=== PATIENT | male | born 1975 | race Hispanic/Latino ===

== ENCOUNTER 2020-02-20 15:54 | Emergency (ER) | payer OTHER, MEDICAID, SELFPAY ==
[2020-02-20 15:56] VITALS: BP 106/73; PULSE 82; RESP 15; TEMP 36.4; O2SAT 98; BMI 27.4
--- NOTE | 2020-02-20 16:59 | ED.DCSUM_ITS ---
- ER Visit Summary Date of Service: 02/20/20 Chief Complaint: Itching History of Present Illness: The patient is a 44 M who presents with itching that is been getting worse over the past 2 weeks. Patient states the itching is worse over his hips and gluteal area. Patient states he is concerned over possible gonorrhea. Patient states he thinks he has been exposed to it. Patient denies any urethral discharge but admits to some burning with urination. Patient admits to a fever of 101 at home. Patient denies any shortness of breath or cough. Physical Examination: Vital signs are stable. Patient is afebrile. Patient is in no acute distress. Oral mucosa is pink and moist. Neck is supple. Trachea is midline. There is no JVD. Heart was regular rate and rhythm. Lungs are clear and equal bilaterally. Abdomen is soft. Bowel sounds are normal. There is no tenderness. Cranial nerves II through XII are intact. There are no focal motor or sensory deficits noted. Extremities are intact. There is no calf tenderness or edema. Skin is warm dry. There is no rash noted. There are some excoriations noted over the lateral aspect of the hips bilaterally as well as the gluteal area. There is no active bleeding noted. There is no erythema or warmth noted. Emergency Department Course and Treatment: Urine was collected for GC and chlamydia and trichomonas. Patient was given Rocephin, Zithromax, and Flagyl here. Patient was instructed to avoid alcohol. Patient was instructed to follow-up with his primary care physician for culture results. Patient understood and was agreeable with the plan. All questions were answered. Disposition: Discharge home Impression: 1. STD exposure This note was generated with [employer] dictation software. It may contain incorrect words, spelling, and punctuation that were not noted in review of the chart prior to signing ED Disposition - Plan for ED Patient: Disposition: Home or Assisted Living Diagnosis: STD exposure Instructions: ED STI Male Treated Referrals: Angelica Flores [NON-STAFF] - 5-7 Days
[2020-02-20] MEDS: Azithromycin 250 MG Tablet 1000 MG PO (17:16)
[2020-02-20] MEDS: metroNIDAZOLE 500 MG Tablet 2000 MG PO (17:16)
[2020-02-20] MEDS: Ceftriaxone 500 MG Vial 250 MG IM (17:26)
[2020-02-20 20:22] LABS: Chlamydia Trachomatis by PCR Negative (Negative); Neisserai gonorrhoeae by PCR Negative (Negative); Probe Check PASS; Sample Adequacy Control PASS; Specimen Processing Control PASS
== END 2020-02-20 17:48 | disposition home or self-care (01) ==
LOC: ED 17:06
PROVIDERS: Emergency Provider Emergency Medicine
DX: Z20.2 Contact with and (suspected) exposure to infections with a predominantly sexual mode of transmission (principal); Z72.0 Tobacco use
CPT/HCPCS: 87210; 87491; 87591; 96372; 99281

== ENCOUNTER 2020-09-06 17:53 | Observation (INO) | payer MEDICAID, SELFPAY ==
[2020-09-06 17:54] VITALS: BP 131/76; PULSE 92; RESP 16; TEMP 35.7; O2SAT 97; BMI 26.2
--- NOTE | 2020-09-06 18:27 | EDS_ITS ---
HPI History of Present Illness Chief Complaint: Substance Abuse Informant: patient Onset/Context/Timing Onset: Month(s) Timing: Intermittent Current Severity: Mild Maximum Severity: Mild Narrative Narrative: 45-year-old male history of IV heroin abuse. Here requesting detox. Also states 4 days ago he stumbled down 4 steps and believes he may have fractured his left forearm. States he is ambidextrous. Denies any prior history or surgery to the left forearm. Denies any head or neck injury. Prior similar symptoms: Yes Recent Illness/Hospitalization: No PFSH PFSH Home Medications NK 09/06/20 [History Last Taken Unknown] Allergy/AdvReac Type Severity Reaction Status Date / Time No Known Allergies Allergy Verified 09/06/20 17:53 Social History Smoking Status: Current every day smoker ROS ROS ED ROS Narrative Patient denies any recent illness. He denies any fever, nausea, vomiting or diarrhea. Review of Systems ROS Unobtainable: Denies due to encephalopathy Constitutional Constitutional ED: Denies fever(s) Eyes Eyes: Denies change in vision ENT ENT ED: Denies sore throat Cardiovascular Cardiovascular: Denies chest pain or palpitations Respiratory/Chest Respiratory/Chest: Denies dyspnea Gastrointestinal Gastrointestinal: Denies abdominal pain, diarrhea, nausea or vomiting Genitourinary Genitourinary ED: Denies dysuria Musculoskeletal Musculoskeletal: Denies myalgias Integumentary Denies rash Neurologic Neurologic: Denies headache(s) Psychiatric Psychiatric: Denies depression Endocrine Endocrinology: Denies polyuria Allergic/Immunologic Allergic/Immunologic ED: Denies urticaria EXAM Physical Exam Narrative Exam Narrative: Middle-aged male no acute distress. Vital signs stable afebrile. HEENT exam unremarkable atraumatic. Pupils round reactive light. C- spine nontender. Trachea midline. Lungs clear to auscultation bilaterally. Heart regular rhythm no murmur. Chest wall he has mild right lateral rib tenderness with a small abrasion. No subcu air crepitance. Abdomen soft nontender normal bowel sounds no peritoneal signs. No bruising. Pelvic girdle intact. Patient moving all 4 extremities. Tract zuniga visualized. Not acutely infected. Normal range of motion. He does have tenderness to his distal left forearm. There is mild swelling. No gross bony deformity. Both hands are neurovascularly intact. Back nontender. Spine nontender. Neurologically is awake and alert with no focal motor deficits. He knows month and year. He knows where he is at. He is acting normally. Const Vital Signs: 09/06/20 17:54 Temperature 96.3 F L Temperature Source Temporal Pulse Rate 92 Respiratory Rate 16 Blood Pressure 131/76 H Blood Pressure Mean 94 Pulse Ox 97 Oxygen Delivery Method Room Air HEENT Reports moist mucous membranes Negative for trauma or tenderness Eyes PERRL and EOMs intact bilaterally Neck no lymphadenopathy, supple and no JVD General: Negative for tenderness Chest Wall inspection of chest normal Chest Narrative: Small abrasion on right lateral chest wall Resp normal respiratory effort and clear to auscultation bilaterally Cardio regular rate, regular rhythm and no murmurs GI normal to inspection, nondistended, normoactive bowel sounds, non-tender and no masses Inspection: Negative for abdominal distention Auscultation: normoactive bowel sounds Palpation: soft; Negative for tender Back/Spine no CVA tenderness Cervical Spine: Negative for cervical spine tenderness Thoracic Spine / Upper Back: Negative for thoracic spinal tenderness or paraspinal muscle tenderness Lumbar Spine / Lower Back: Negative for lumbar spinal tenderness Extremity normal to inspection Extremity Narrative: Except tenderness mild swelling to the left distal forearm. Hand is neurovascular intact. Neuro oriented x3 and CN's II-XII intact bilaterally Sensorium / Orientation: alert; Negative for orientation impaired Motor Exam: strength 5/5 throughout Psych mental status grossly normal Skin no rashes or lesions noted MDM MDM MDM Narrative Medical decision making narrative: Patient requesting admission for detox. He also fell injuring his left distal forearm which will be x-rayed along with his chest. I will speak to the hospitalist about admission for detox. Radiography Diagnostic Testing: Radiology Impression Chest X-Ray 09/06/20 18:28 IMPRESSION: No acute radiographic abnormalities. Electronically Signed: Yvan Allred MD at 19:12 EDT Tel , Service support , Forearm X-Ray 09/06/20 18:31 IMPRESSION: Acute transverse nondisplaced fracture of the distal ulnar diaphysis. Electronically Signed: Yvan Allred MD at 19:13 EDT Tel , Service support , Left forearm x-ray 2 views interpreted by myself shows a nondisplaced fracture of the distal third of the ulna. This is also read by the radiologist who agrees. Chest x-ray AP and lateral view showed no obvious rib fractures. Normal cardiac silhouette mediastinum. Interpreted by myself and the radiologist. Treatment and Re-Evaluation Comments:: I went over the x-rays with the patient. His left forearm was placed in a short arm AP Ortho-Glass splint. He tolerated procedure well. Procedures Upper Extremity Splints Upper Extremity Splint: Orthoglass and Volar Splint Fabrication: Fabricated Location: Left Discharge Plan Triage Chief Complaint: Substance Abuse ED Provider: Wagner Melendrez Dx/Rx/DC Orders Clinical Impression: Active substance abuse, Desire for detoxification Prescriptions: No Action NK RF: 0 Primary Care Provider: Care Physician,No Primary Referrals: Care Physician,No Primary [Primary Care Provider] -
--- NOTE | 2020-09-06 18:28 | RAD_ITS ---
INDICATION: fell and hit right lateral ribs EXAMINATION/TECHNIQUE: X-RAY - XR Chest 2 Views COMPARISON: None. FINDINGS: The lungs are clear. The cardiomediastinal silhouette is unremarkable. No pleural effusion or pneumothorax. No acute osseous abnormalities. RAD/Chest PA and Lateral IMPRESSION: No acute radiographic abnormalities. Electronically Signed: Yvan Allred MD at 19:12 EDT Tel , Service support ,
--- NOTE | 2020-09-06 18:31 | RAD_ITS ---
INDICATION: fall and pain EXAMINATION/TECHNIQUE: X-RAY - LEFT XR Forearm 2 Views COMPARISON: None. FINDINGS: Acute transverse nondisplaced fracture of the distal ulnar diaphysis. No blastic or lytic lesions. No degenerative changes are seen. Soft tissue swelling of the forearm. RAD/Forearm 2 Views IMPRESSION: Acute transverse nondisplaced fracture of the distal ulnar diaphysis. Electronically Signed: Yvan Allred MD at 19:13 EDT Tel , Service support ,
--- NOTE | 2020-09-06 19:33 | ED.RN ---
CALLED 180 NAVIGATOR (CASANDRA), TO ADVISE OF ADMISSION
--- NOTE | 2020-09-06 19:35 | CM.ED ---
SOCIAL WORK Referral Source: Self-referral Reason for Consult: Substance Abuse Met with patient in room. Introduced role and reason for referral. Patient requesting detox from heroin. Patient states last use was today around 1:30p or 2p. Patient states recently broke hand and has been using more. Patient states I just can't do it anymore. Patient reports has completed an assessment with [facility]. Education provided on RAMP and informed SW from [facility] will be in to complete assessment. Patient verbalized understanding and agrees with rules of RAMP. Patient denies any questions at this time. [facility] Treatment Navigator has been notified of admission. Plan: Admit to [facility] CRISTINA Chan, WEED CONTROLLER
--- NOTE | 2020-09-06 19:40 | HP.PCM_ITS ---
HPI - General General Date of Admission: 09/06/20 HPI Narrative DA GEORGE, is a 45 M who presents for desire for detoxification from opioids. Patient states that his last use was between 130 and 2 PM earlier today. Patient states he uses an average of 1 g of heroin daily. Denies other concurrent drug use. Patient also reports smoking 1 pack/day of cigarettes. Patient denies use of alcohol. Patient also reports that 4 days ago he fractured his left arm. Ash wrap with Ortho-Glass in place. Patient denies any withdrawal symptoms at this time. Patient denies having any medical problems or taking medications daily. [facility] Home Medications NK 09/06/20 [History Last Taken Unknown] Allergy/AdvReac Type Severity Reaction Status Date / Time No Known Allergies Allergy Verified 09/06/20 17:53 Social History Smoking Status: Current every day smoker ROS Constitutional Constitutional: Denies anorexia, chills or fatigue Cardiovascular Cardiovascular: Denies chest pain, edema, palpitations or syncope Respiratory/Chest Respiratory/Chest: Denies cough, hemoptysis, shortness of breath at rest or shortness of breath with exertion Gastrointestinal Gastrointestinal: Denies abdominal pain, constipation or diarrhea Genitourinary Genitourinary: Denies dysuria Musculoskeletal Musculoskeletal: Reports extremity pain; Denies back pain or joint pain Integumentary Integumentary: Denies dry skin, rash or wounds Neurologic Neurologic: Denies abnormal gait, abnormal speech or confusion Psychiatric Psychiatric: Denies anxiety or depression Endocrine Endocrinology: Denies change in body appearance, cold intolerance or heat intolerance Hematologic/Lymphatic Hematologic/Lymphatic: Denies easy bleeding or easy bruising Vital Signs Vital Signs Vital Signs: 09/06/20 17:54 Temperature 96.3 F L Temperature Source Temporal Pulse Rate 92 Respiratory Rate 16 Blood Pressure 131/76 H Blood Pressure Mean 94 Pulse Ox 97 Oxygen Delivery Method Room Air Physical Exam Const alert and oriented x3 General Appearance: cooperative HEENT normocephalic and head/scalp atraumatic Eyes PERRL Neck supple, no JVD and thyroid normal General: trachea midline Lymph Lymphatic: no lymphadenopathy noted Resp normal respiratory effort, normal air movement and clear to auscultation bilaterally Cardio regular rate, regular rhythm, S1 normal heart sound and S2 normal heart sound GI normal to inspection, nondistended, normoactive bowel sounds, soft to palpation and non-tender Extremity normal capillary refill and no clubbing, cyanosis or edema Extremity Narrative: Casting in place to left lower arm due to fracture 4 days ago. General Extremity: no tenderness to palpation of joints or extremities Skin General Skin Exam: no breakdown and turgor normal Lesions: no lesions Rashes: no rashes Neuro CN's II-XII intact bilaterally Psych thought process normal, cooperative and affect normal Appearance: appropriate Radiology Impression Chest X-Ray 09/06/20 18:28 IMPRESSION: No acute radiographic abnormalities. Electronically Signed: Yvan Allred MD at 19:12 EDT Tel , Service support , Forearm X-Ray 09/06/20 18:31 IMPRESSION: Acute transverse nondisplaced fracture of the distal ulnar diaphysis. Electronically Signed: Yvan Allred MD at 19:13 EDT Tel , Service support , Assessment & Plan Assessment/Plan (1) Opioid abuse: (2) Desire for detoxification: (3) Tobacco abuse: PLAN: 1. Opioid abuse with desire for detoxification -Admit to [facility] -Opioid withdrawal protocol ordered including buprenorphine and supportive medications -Case management consulted for 180 involvement -Vital signs per protocol 2. Tobacco abuse -NicoDerm patch ordered daily DVT Prophylaxis-not indicated This patient was seen by KATHY MosleyC under the supervision of Dr. Marley.
[2020-09-06 19:41] VITALS: BP 124/78; PULSE 88; RESP 16; TEMP 36.7; O2SAT 99
[2020-09-06 20:00] VITALS: BMI 25.6
[2020-09-06 20:23] VITALS: BP 137/70; PULSE 69; RESP 12; TEMP 37.1; O2SAT 96
[2020-09-06 22:35] VITALS: O2SAT 97
[2020-09-06 23:17] VITALS: BP 116/70; PULSE 56; RESP 16; TEMP 37.2; O2SAT 99
[2020-09-07] MEDS: traZODone 100 MG Tablet PO (00:33)
[2020-09-07] MEDS: Buprenorphine HCl 2 MG TAB.SUBL 4 MG SL ×2 (01:15→09:25)
[2020-09-07 05:17] VITALS: BP 132/80; PULSE 61; RESP 16; TEMP 36.9; O2SAT 98
[2020-09-07] MEDS: Dicyclomine 10 MG Capsule 20 MG PO (06:16)
[2020-09-07] MEDS: Acetaminophen 325 MG Tablet 650 MG PO (06:16)
[2020-09-07 07:44] VITALS: O2SAT 96
[2020-09-07 09:25] VITALS: BP 121/70; PULSE 76; RESP 18; TEMP 36.6; O2SAT 98
[2020-09-07] MEDS: cloNIDine HCl 0.1 MG Tablet PO (09:28)
--- NOTE | 2020-09-07 12:26 | PCM.PN.HOSP ---
Documented by User: Katie Kamara NP, [employer] MECHANIC-C 09/07/20 12:30 Subjective Subjective: Patient seen and examined. Denies significant withdrawal symptoms. States he feels fairly well this morning. Awaiting [employer] consult. Objective Data Objective Data Vital Signs: Vital Signs Temp Pulse Resp BP Pulse Ox 97.9 F 76 18 121/70 H 98 09/07/20 09:25 09/07/20 09:25 09/07/20 09:25 09/07/20 09:25 09/07/20 09:25 Oxygen Delivery Method Room Air Weight: 154 lb 1.65 oz Body Mass Index (BMI) 25.6 Intake & Output: Intake and Output for Last 24 Hours 09/05/20 09/06/20 09/07/20 23:59 23:59 23:59 Intake Total 220 / 220 360 / 360 Balance 220 / 220 360 / 360 Radiography Diagnostic Testing: Radiology Impression Chest X-Ray 09/06/20 18:28 IMPRESSION: No acute radiographic abnormalities. Electronically Signed: Yvan Allred MD at 19:12 EDT Tel , Service support , Forearm X-Ray 09/06/20 18:31 IMPRESSION: Acute transverse nondisplaced fracture of the distal ulnar diaphysis. Electronically Signed: Yvan Allred MD at 19:13 EDT Tel , Service support , Physical Exam Const alert, oriented x3 and no apparent distress Orientation / Consciousness: awake, oriented to person, oriented to place and oriented to time HEENT normocephalic and moist oral mucous membranes Eyes PERRL, EOMs intact bilaterally and conjunctivae normal Neck no lymphadenopathy Resp normal respiratory effort and clear to auscultation bilaterally Cardio regular rate, regular rhythm and no murmurs Peripheral Pulses: pulses 2+ throughout GI normal to inspection, nondistended, normoactive bowel sounds, non-tender and non-distended Extremity normal to inspection Extremity Narrative: Left arm in cast, recent fracture Skin no rashes or lesions noted Lesions: no lesions Rashes: no rashes Trauma: no lacerations or abrasions Neuro oriented x3 Sensorium / Orientation: awake and alert Psych affect normal Assessment & Plan Assessment/Plan (1) Opioid abuse: PLAN: 1. Opioid withdrawal, chronic opioid dependence-medical stabilization per protocol. Buprenorphine taper.. Regimen for somatic complaints. [employer] consult. 2. Tobacco dependence-encouraged cessation. Nicotine replacement patch. 3. Recent left arm fracture-in cast, follow-up with Ortho as outpatient. DVT prophylaxis- low risk, not indicated This patient was seen by HENRIETTA Barahona under the supervision of Dr. Mcintosh.
--- NOTE | 2020-09-07 14:04 | NURSING ---
Patient wanting to leave AMA. Notified DISABILITY BENEFITS SPECIALIST. AMA papers signed and copy given to patient
--- NOTE | 2020-09-07 15:21 | DS.PCM_ITS ---
Documented by User: Katie Kamara NP, [employer] 09/07/20 15:26 Providers Date of Admission: 09/06/20 Primary Care Physician: No Primary Care Phys Reason For Visit: OPIOID WITHDRAWAL Diagnosis Discharge Diagnosis (1) Opioid abuse: Status: Acute Code(s): F11.10 - Opioid abuse, uncomplicated Medications at Discharge Home Medications NK 09/06/20 Hospital Course Operations None Procedures None Summary of Care Provided Minutes Spent on Discharge: 35 Hospital Course: Patient is a 45-year-old male admitted 09/06/2020 requesting detox from opioids. 1. Opioid withdrawal, chronic opioid dependence-medical stabilization per protocol. Buprenorphine taper. Regimen for somatic complaints. [employer] consulted. Patient abruptly signed out AGAINST MEDICAL ADVICE in less than 24 hours since being admitted. 2. Tobacco dependence-encouraged cessation. 3. Recent left arm fracture-in cast, follow-up with Ortho as outpatient. Physical Exam Const alert, oriented x3 and no apparent distress Orientation / Consciousness: awake, oriented to person, oriented to place and oriented to time HEENT normocephalic and moist oral mucous membranes Eyes PERRL, EOMs intact bilaterally and conjunctivae normal Neck no lymphadenopathy Resp normal respiratory effort and clear to auscultation bilaterally Cardio regular rate, regular rhythm and no murmurs Peripheral Pulses: pulses 2+ throughout GI normal to inspection, nondistended, normoactive bowel sounds, non-tender and non-distended Extremity normal to inspection Extremity Narrative: Left arm in cast, recent fracture Skin no rashes or lesions noted Lesions: no lesions Rashes: no rashes Trauma: no lacerations or abrasions Neuro oriented x3 Sensorium / Orientation: awake and alert Psych affect normal Patient seen and examined prior to discharge. Physical assessment as noted above. Patient signed out AGAINST MEDICAL ADVICE. This patient was seen by HENRIETTA Barahona under the supervision of Dr. Mcintosh. Radiography Diagnostic Testing: Radiology Impression Chest X-Ray 09/06/20 18:28 IMPRESSION: No acute radiographic abnormalities. Electronically Signed: Yvan Allred MD at 19:12 EDT Tel , Service support , Forearm X-Ray 09/06/20 18:31 IMPRESSION: Acute transverse nondisplaced fracture of the distal ulnar diaphysis. Electronically Signed: Yvan Allred MD at 19:13 EDT Tel , Service support , Meaningful Use Info Meaningful Use Diagnoses (Choose all that apply): None applicable Discharge Plan Admission Admit Date/Time: 09/06/20 19:39 Attending Provider: Stephie Mcintosh Primary Care Provider: Care Physician,No Primary Discharge Orders/Prescriptions Prescriptions: No Action NK RF: 0 Referrals / Follow Up: Care Physician,No Primary [Primary Care Provider] - Disposition Disposition (needs filled in before D/C Order can be placed): Against Medical Advice Documented by User: Dr. Stephie Mcintosh MD 09/07/20 17:44 Providers Date of Admission: 09/06/20 Reason For Visit: OPIOID WITHDRAWAL Medications at Discharge Home Medications NK 09/06/20 Discharge Plan Admission Admit Date/Time: 09/06/20 19:39 Attending Provider: Stephie Mcintosh Primary Care Provider: Care Physician,No Primary Discharge Orders/Prescriptions Prescriptions: No Action NK RF: 0 Referrals / Follow Up: Care Physician,No Primary [Primary Care Provider] - Disposition Disposition (needs filled in before D/C Order can be placed): Against Medical Advice Addendum Addendum: This patient was seen in conjunction with Katie Kamara NP. I have independently interviewed and examined the patient and reviewed pertinent his torical, laboratory, and other data. Please refer to her note for patient's presentation, findings, and recommendations. 45-year-old male with past medical history of polysubstance use disorder who was admitted for medical stabilization for opioid withdrawal. Patient admits to using a gram of heroin every day. He also smokes a pack of cigarettes. He was admitted to the [facility] and managed on the Subutex withdrawal protocol. Patient was seen and examined. No new complaints. No acute events overnight. Vitals were reviewed -stable Physical Exam: Gen: Comfortable, not pale, not jaundiced, alert oriented x3 CVS:HS I +II, regular, no murmurs RESP: Diminished at lung bases GI: BS present and normal, nontender, no palpable organs EXT:No edema Patient signed out AGAINST MEDICAL ADVICE Date of discharge was 09/07/20 Visit Charges Inpatient E&M: 01183 Disch Hosp
== END 2020-09-07 14:06 | disposition left against medical advice (07) ==
LOC: ED 18:45 → PCU 19:53
PROVIDERS: Admitting Provider Family Medicine; Emergency Provider Emergency Medicine; Visit Provider Internal Medicine
DX: F11.23 Opioid dependence with withdrawal (principal); F17.210 Nicotine dependence, cigarettes, uncomplicated; S20.311A Abrasion of right front wall of thorax, initial encounter; W18.40XA Slipping, tripping and stumbling without falling, unspecified, initial encounter; Y93.9 Activity, unspecified; Y92.9 Unspecified place or not applicable; Y99.9 Unspecified external cause status; S52.225D Nondisplaced transverse fracture of shaft of left ulna, subsequent encounter for closed fracture with routine healing; X58.XXXD Exposure to other specified factors, subsequent encounter
CPT/HCPCS: 71046; 73090; 97802; 99218; 99283; G0378

== ENCOUNTER 2021-04-05 20:20 | Emergency (ER) | payer MEDICAID, SELFPAY ==
[2021-04-05 20:20] VITALS: BP 123/77; PULSE 62; RESP 15; TEMP 35.9; O2SAT 97; BMI 26.3
--- NOTE | 2021-04-05 22:18 | EX.ED.DYSGE1 ---
HPI History of Present Illness Chief Complaint: Headache Narrative Narrative: Patient is a 45-year-old male who states that he has had generalized headache with fatigue and nausea. He states the symptoms have been present for 1 to 2 days. He reports his daughter recently tested positive for Covid therefore he has direct exposure. He states he is concerned he has Covid because of the symptoms and his exposure and therefore comes in for evaluation [facility] Home Medications dexamethasone [Decadron] 6 mg PO DAILY #10 tab 04/05/21 [Rx Last Taken Unknown] Allergy/AdvReac Type Severity Reaction Status Date / Time No Known Allergies Allergy Verified 09/06/20 17:53 Social History Smoking Status: Current every day smoker tobacco type: cigarettes ROS ROS ED Constitutional Constitutional ED: Denies chills or fever(s) ENT ENT ED: Reports rhinorrhea and sore throat Cardiovascular Cardiovascular: Denies chest pain Respiratory/Chest Respiratory/Chest: Reports cough; Denies dyspnea Gastrointestinal Gastrointestinal: Reports nausea; Denies abdominal pain, diarrhea or vomiting Genitourinary Genitourinary ED: Denies dysuria Musculoskeletal Musculoskeletal: Reports myalgias Integumentary Denies rash Neurologic Neurologic: Reports headache(s) Hematologic/Lymphatic Hematologic/Lymphatic: Denies easy bleeding or easy bruising EXAM Physical Exam Const Vital Signs: 04/05/21 20:20 Temperature 96.7 F L Temperature Source Temporal Pulse Rate 62 Respiratory Rate 15 Blood Pressure 123/77 H Blood Pressure Mean 92 Pulse Ox 97 Oxygen Delivery Method Room Air Positive well nourished and well developed General Appearance ED: well developed HEENT Reports moist mucous membranes HEENT Narrative: Cobblestoning the posterior pharynx consistent with sinus drainage but no airway edema or compromise Eyes PERRL and EOMs intact bilaterally Neck supple Neck Narrative: No meningeal signs but there is anterior cervical lymphadenopathy noted Resp normal respiratory effort and clear to auscultation bilaterally Cardio regular rate and regular rhythm GI normal to inspection, nondistended, normoactive bowel sounds, non-tender, non-distended and no masses GI Narrative: No voluntary guarding or rigidity no pulsatile mass Auscultation: normoactive bowel sounds Palpation: soft Extremity normal to inspection Neuro oriented x3 and CN's II-XII intact bilaterally Neuro Narrative: Are grossly intact there are no focal neurologic deficits. No pronator drift no dysmetria no truncal ataxia. NIH stroke scale score of 0 Sensorium / Orientation: alert Motor Exam: strength 5/5 throughout Psych mental status grossly normal Skin no rashes or lesions noted MDM MDM MDM Narrative Medical decision making narrative: Patient presented to the ER with stable vitals and in no acute distress. He had a normal neurologic exam and his symptoms are more of a viral syndrome in nature. His only concern was for Covid based on his daughter's exposure and his rapid test was negative. Therefore at this time with stable vitals and normal neurologic exam no signs of meningitis and a soft abdomen he does not need further work-up and can be discharged home at this time. Discharge Plan Triage Chief Complaint: Headache ED Provider: Harjinder Burch Dx/Rx/DC Orders Clinical Impression: Acute viral syndrome Instructions: ED Headache Unspecified, ED Viral Syndrome (Adult) Prescriptions: New dexamethasone [Decadron] 6 mg tablet 6 mg PO DAILY Qty: 10 RF: 0 Stand Alone Forms: ED Work / School Excuse Primary Care Provider: Care Physician,No Primary Referrals: Trinh Madrid MD [STAFF PHYSICIAN] - 3-5 Days if not improving Care Physician,No Primary [Primary Care Provider] - Disposition Disposition: Home, Self Care
[2021-04-05 22:50] VITALS: PULSE 66; RESP 18; O2SAT 99
== END 2021-04-05 22:50 | disposition home or self-care (01) ==
PROVIDERS: Emergency Provider Emergency Medicine
DX: B34.9 Viral infection, unspecified (principal); F17.210 Nicotine dependence, cigarettes, uncomplicated
CPT/HCPCS: 87426; 99282

== ENCOUNTER 2021-06-25 15:56 | Emergency (ER) | payer MEDICAID, SELFPAY ==
[2021-06-25 15:57] VITALS: BP 120/77; PULSE 61; RESP 15; TEMP 36.4; O2SAT 98; BMI 27.1
--- NOTE | 2021-06-25 16:19 | EX.ED.GUMALE ---
HPI History of Present Illness Chief Complaint: Complaint Informant: patient Pain Onset: Weeks Context: Gradual Onset Timing: Continuous Current Severity: Mild Maximum Severity: Mild Appearance Lesion(s): No Genital Edema: No Penile Discharge Genital Discharge Amount: None Related History Sexually: Active Unprotected Sex: Yes Epididymitis: No Bladder/Kidney Infection: No Enlarged Prostate: No Prostate Infection: No Prostate Cancer: No Narrative Narrative: 45-year-old male states he has had dysuria for 3 weeks. Denies any discharge. No hematuria. Nursing and past medical history. He is sexually active. States he was treated 1 other time for an STD and his symptoms improved. Recent Illness/Hospitalization: No PFSH PFSH Medical History no medical history no medical history Home Medications dexamethasone [Decadron] 6 mg PO DAILY #10 tab 04/05/21 [Rx Last Taken Unknown] Allergy/AdvReac Type Severity Reaction Status Date / Time naproxen Allergy Hives Verified 06/25/21 15:58 Social History Smoking Status: Current every day smoker tobacco type: cigarettes ROS ROS ED ROS Narrative Dysuria. Review of Systems ROS Unobtainable: Denies due to encephalopathy Constitutional Constitutional ED: Denies fever(s) Eyes Eyes: Denies change in vision ENT ENT ED: Denies ear pain Cardiovascular Cardiovascular: Denies chest pain Respiratory/Chest Respiratory/Chest: Denies dyspnea Gastrointestinal Gastrointestinal: Denies abdominal pain Genitourinary Genitourinary ED: Reports dysuria; Denies hematuria or testicular mass Musculoskeletal Musculoskeletal: Denies myalgias Integumentary Denies rash Neurologic Neurologic: Denies headache(s) Psychiatric Psychiatric: Denies depression Endocrine Endocrinology: Denies polyuria Hematologic/Lymphatic Hematologic/Lymphatic: Denies easy bruising Allergic/Immunologic Allergic/Immunologic ED: Denies urticaria EXAM Physical Exam Narrative Exam Narrative: Middle-age male no acute distress. Vital signs stable afebrile. HEENT exam normal. Lungs are clear. Heart regular rhythm. Abdomen soft nondistended normal bowel sounds no peritoneal signs. External exam unremarkable. Circumcised male. No discharge. No lesions. No lymphadenopathy. Nontender. Moving all 4 extremities. Nontender no edema. Otherwise exam unremarkable. Const Vital Signs: 06/25/21 15:57 Temperature 97.6 F L Temperature Source Temporal Pulse Rate 61 Respiratory Rate 15 Blood Pressure 120/77 Blood Pressure Mean 91 Pulse Ox 98 Oxygen Delivery Method Room Air Positive well nourished and well developed; Negative for obese, cachectic, contractures or unkempt General Appearance ED: well developed and NAD; Negative for unkempt, cachectic, contractures or pallor Nutritional Appearance: Negative for cachectic or obese HEENT Reports moist mucous membranes normocephalic and atraumatic; Negative for trauma or tenderness Eyes PERRL and EOMs intact bilaterally Neck no lymphadenopathy, supple and no JVD General: Negative for tenderness Resp normal respiratory effort and clear to auscultation bilaterally Auscultation: Negative for rales, rhonchi or wheezes Cardio regular rate, regular rhythm, S1 normal heart sound, S2 normal heart sound and no murmurs GI non-tender, non-distended and no masses Auscultation: normoactive bowel sounds; Negative for hyperactive bowel sounds or hypoactive bowel sounds Palpation: soft; Negative for hepatomegaly or splenomegaly Rectal Exam: Negative for tenderness no CVA tenderness Penis: normal penis and circumcised; Negative for uncircumcised, condyloma, corporal disruption, ecchymosis, edematous, erythema, mass, nodule, papules, pustules, vesicles, paraphimosis or phimosis Meatus: meatus normal; Negative for meatal discharge or blood at meatus Scrotum: testes descended bilaterally Testes: testicular lie normal; Negative for testicular tenderness or testicular mass Back/Spine no CVA tenderness General Back: Negative for CVA tenderness Extremity normal to inspection General Extremety ED: Negative for edema or tenderness General Extremity: Negative for edema Neuro oriented x3 Sensorium / Orientation: alert, oriented to person, oriented to place and oriented to time; Negative for confused, lethargic or stuporous Psych mental status grossly normal Appearance: Negative for unkempt Attitude: No agitated Mood & Affect: Negative for depressed or tearful Skin General Skin Exam: Negative for jaundice or pallor Lesions: no lesions Rashes: no rashes MDM MDM MDM Narrative Medical decision making narrative: Male with month-long history of dysuria. He will be treated for possible STD and given IM injection of Rocephin and p.o. Zithromax. UA will be sent. Discharge Plan Triage Chief Complaint: Complaint ED Provider: Wagner Melendrez Dx/Rx/DC Orders Clinical Impression: Urethritis, Potential exposure to STD Instructions: Urethritis in Men Prescriptions: No Action dexamethasone [Decadron] 6 mg tablet 6 mg PO DAILY Qty: 10 RF: 0 Primary Care Provider: Jero Lobato Referrals: Jero Lobato MD [Primary Care Provider] - 1 Week if not improving Activity Restrictions/Additional Instructions: This should progressively improve. If not follow-up with her primary care provider. We will send a urinalysis if that comes back positive I will contact you by phone. Disposition Disposition: Home, Self Care
[2021-06-25 16:37] LABS: Bacteria 0 SEEN /hpf (None Seen); Red Blood Cells-Urine 0 SEEN /hpf (0-5); Squamous Epithelial Cells - UA 0 SEEN /hpf (0-5)
[2021-06-25 16:38] LABS: Color, Urine Yellow (Yellow); Glucose, Dipstick Normal (Normal); Ketone-Dipstick 5 mg/dl (Negative); Leukocyte Esterase-Dipstick 25 /ul (Negative); Nitrite-Dipstick Negative (Negative); Occult Blood-Urine Negative /ul (Negative); Protein-Dipstick Negative (Negative); Specific Gravity, Urine 1.025 (1.002-1.030); Urine Clarity Clear (Clear); Urine Urobilinogen 8 mg/dl (Normal)
[2021-06-25 16:40] LABS: Urine Bilirubin Dipstick 1 mg/dL (Negative)
[2021-06-25 16:46] LABS: Mucous, Urine 4+ /hpf (<or=2+); White Blood Cells 0-5 SEEN /hpf (0-5)
[2021-06-25] MEDS: Azithromycin 250 MG Tablet 1000 MG PO (16:56)
[2021-06-25] MEDS: Ceftriaxone 500 MG Vial 250 MG IM (16:57)
[2021-06-25 16:59] VITALS: PULSE 70; RESP 16
== END 2021-06-25 17:01 | disposition home or self-care (01) ==
PROVIDERS: Emergency Provider Emergency Medicine; PCP Internal Medicine; Visit Provider Emergency Medicine
DX: N34.2 Other urethritis (principal); F17.210 Nicotine dependence, cigarettes, uncomplicated; Z20.2 Contact with and (suspected) exposure to infections with a predominantly sexual mode of transmission; R30.0 Dysuria
CPT/HCPCS: 81001; 96372; 99282

== ENCOUNTER 2022-02-01 23:02 | Emergency (ER) | payer MEDICAID, SELFPAY ==
[2022-02-01 23:02] VITALS: BP 108/73; PULSE 51; RESP 15; TEMP 36.3; O2SAT 96; BMI 25.8
--- NOTE | 2022-02-01 23:31 | EDS_ITS ---
HPI History of Present Illness Chief Complaint: Other, Pain/Inj Informant: patient and spouse/S.O. Narrative Narrative: 46-year-old male presenting to the emergency department with right submandibular swelling. Is been present for the past several days and he notes tenderness. No overlying erythema. He notes no dental pain. He notes saliva production has been normal. No prior occurrence of this. He also notes several other constitutional complaints that are unrelated to tonight's visit such as bilateral leg cramps as well as urinary frequency at night. He states that he has been experiencing dysuria over the past 5 months. He has not seen a urologi st. No fevers. No penile drainage or lesions. PFSH PFSH Home Medications dexamethasone 6 mg tablet (Decadron) 6 mg PO DAILY #10 tabs 04/05/21 [Rx Last Taken Unknown] amoxicillin 875 mg-potassium clavulanate 125 mg tablet 1 tab PO Q12H #20 tabs 02/01/22 [Rx Last Taken Unknown] Allergy/AdvReac Type Severity Reaction Status Date / Time naproxen Allergy Hives Verified 02/01/22 23:05 Social History (Updated 02/01/22 @ 23:[address] Spencer Voss, DO) Smoking Status: Current every day smoker tobacco type: cigarettes substance use type: does not use ROS ROS ED Constitutional Constitutional ED: Denies chills or weight loss Eyes Eyes: Denies change in vision or diplopia ENT ENT ED: Reports other Details: See history of present illness ; Denies ear pain, rhinorrhea or sore throat Cardiovascular Cardiovascular: Denies chest pain, orthopnea, palpitations or racing heartbeat Respiratory/Chest Respiratory/Chest: Denies cough, dyspnea or orthopnea Gastrointestinal Gastrointestinal: Denies abdominal pain, diarrhea, nausea or vomiting Genitourinary Genitourinary ED: Reports urinary frequency and other; Denies dysuria or hematuria Musculoskeletal Musculoskeletal: Denies arthralgias or myalgias Integumentary Denies abscess or rash Neurologic Neurologic: Denies headache(s) or weakness Psychiatric Psychiatric: Denies anxiety, depression, suicidal ideation or suicidal thoughts Endocrine Endocrinology: Denies polydipsia, polyphagia or polyuria Allergic/Immunologic Allergic/Immunologic ED: Denies mouth swelling, tongue swelling or urticaria EXAM Physical Exam Const Vital Signs: 02/01/22 23:02 Temperature 97.3 F L Temperature Source Temporal Pulse Rate 51 L Respiratory Rate 15 Blood Pressure 108/73 Blood Pressure Mean 84 Pulse Ox 96 Positive well nourished and well developed General Appearance ED: well developed HEENT Reports normocephalic, head/scalp atraumatic and moist mucous membranes HEENT Narrative: There is focal swelling what appears to be the submandibular gland on the right. There is no overlying erythema or abscess noted. Dental examination does not reveal any findings. No ingrown hairs noted. No dental tenderness. Eyes PERRL and EOMs intact bilaterally Neck no lymphadenopathy, supple and no JVD Resp normal respiratory effort and clear to auscultation bilaterally Cardio regular rate, regular rhythm and no murmurs GI normal to inspection, nondistended, normoactive bowel sounds and non-tender Palpation: soft Back/Spine no CVA tenderness and normal ROM Extremity normal to inspection General Extremety ED: Negative for edema General Extremity: Negative for edema Neuro oriented x3 and CN's II-XII intact bilaterally Sensorium / Orientation: alert Motor Exam: strength 5/5 throughout Psych mental status grossly normal Mood & Affect: Negative for depressed or tearful Skin no rashes or lesions noted and no wounds MDM MDM MDM Narrative Medical decision making narrative: I Carolynn have the patient started on Augmentin and have him use lemon candy. If no improvement would recommend follow-up with ear nose and throat. For his nocturnal urination issues I asked him to follow-up with urology. Patient notes understanding the plan Discharge Plan Triage Chief Complaint: Other, Pain/Inj ED Provider: Spencer Voss Dx/Rx/DC Orders Clinical Impression: Submandibular gland swelling, Urinary frequency Instructions: ED Salivary Gland Swelling ... Prescriptions: New amoxicillin-pot clavulanate 875-125 mg tablet 1 tab PO Q12H Qty: 20 0RF No Action dexamethasone [Decadron] 6 mg tablet 6 mg PO DAILY Qty: 10 0RF Primary Care Provider: Jero Lobato Referrals: Yvan Preston MD [Med Staff - Active Staff] - As soon as possible (For ear nose and throat evaluation) Petar Andrade MD [Med Staff - Active Staff] - As soon as possible (For urology) Jero Lobato MD [Primary Care Provider] - Disposition Disposition: Home, Self Care
== END 2022-02-01 23:40 | disposition home or self-care (01) ==
PROVIDERS: Emergency Provider Emergency Medicine; PCP Internal Medicine; Visit Provider Emergency Medicine
DX: R22.0 Localized swelling, mass and lump, head (principal); F17.210 Nicotine dependence, cigarettes, uncomplicated; R35.0 Frequency of micturition
CPT/HCPCS: 99282